=== PATIENT | female | born 1950 | race Hispanic/Latino ===

== ENCOUNTER → 2020-03-04 | Outpatient (CLI) | payer MEDICARE | END | disposition home or self-care (01) | LOC: RAH 14:09 | PROVIDERS: ATTEND Family Medicine | DX: Z12.31 Encounter for screening mammogram for malignant neoplasm of breast (principal) | CPT/HCPCS: 77067 ==

== ENCOUNTER → 2020-03-05 | Outpatient (CLI) | payer MEDICARE | END | disposition home or self-care (01) | LOC: OIH 09:10 | PROVIDERS: ATTEND Family Medicine | DX: M17.12 Unilateral primary osteoarthritis, left knee (principal) | CPT/HCPCS: 73562 ==

== ENCOUNTER 2021-03-04 06:27 | Day surgery (SDC) | payer MEDICARE ==
[2021-03-03 16:21] LABS: BASOPHILS % (AUTO) 0.4 % (0.0-5.0); EOSINOPHILS % (AUTO) 1.5 % (0.0-8.0); HEMATOCRIT 38.7 % (36-48); LYMPHOCYTES % (AUTO) 35.4 % (21.0-51.0); MEAN CORPUSCULAR HEMOGLOBIN 27.6 pg (27.0-33.0); MONOCYTES % (AUTO) 9.1 % (3.0-13.0); NEUTROPHILS % (AUTO) 53.1 % (40.0-77.0); PLATELET COUNT (AUTO) 224 K/uL (130-400); RED CELL DISTRIBUTION WIDTH 14.2 % (11.0-15.5)
[2021-03-03 16:34] LABS: CREATININE 0.9 mg/dL (0.5-1.5); POTASSIUM 4.3 mmol/L (3.5-5.1)
[2021-03-04] VITALS (17 sets, daily range): BP systolic 100–143; BP diastolic 46–72
[~2021-03-04] VITALS: Ht 160 cm; Wt 93.9 kg
[2021-03-04] MEDS ORDERED: AMLO-257 PO (08:37)
[2021-03-04] MEDS ORDERED: VITAD50000 PO (08:37)
[2021-03-04] MEDS ORDERED: METF-446 PO (08:37)
[2021-03-04] MEDS ORDERED: HYDR-4060 PO (08:37)
[2021-03-04] MEDS ORDERED: LISI40TA9 PO (08:37)
[2021-03-04] MEDS ORDERED: NACL 0.9% 1000ML 1,000 ML IV ONE (08:38)
[2021-03-04] MEDS ORDERED: CEFAZOLIN SODIUM 1 GM VIAL ONE (08:39)
[2021-03-04] MEDS ORDERED: ONDANSETRON 4MG INJ ONE (09:04)
[2021-03-04] MEDS ORDERED: LIDOCAINE PF 100MG/5ML (2%) SYRINGE 5ML ONE (09:04)
[2021-03-04] MEDS ORDERED: GLYCOPYRROLATE 1 MG/5 ML SYRINGE ONE (09:04)
[2021-03-04] MEDS ORDERED: DEXAMETHASONE SOD PHOSPHATE 10MG/ML 1ML VIAL ONE (09:04)
[2021-03-04] MEDS ORDERED: SUCCINYLCHOLINE CHLORIDE 20 MG/ML 10 ML VIAL ONE (09:04)
[2021-03-04] MEDS ORDERED: PROPOFOL 10 MG/ML 20ML VIAL IV ONE (09:04)
[2021-03-04] MEDS ORDERED: NEOSTIGMINE 5MG/5ML SYR IV ONE (09:05)
[2021-03-04] MEDS ORDERED: MIDAZOLAM HCL 1 MG/ML 2ML VIAL ONE (09:05)
[2021-03-04] MEDS ORDERED: ROCURONIUM 10MG/1ML SYR 10 MG/ML ML ONE (09:05)
[2021-03-04] MEDS ORDERED: FENTANYL CITRATE PF 50 MCG/1 ML 2ML VIAL ONE (09:05)
[2021-03-04] MEDS ORDERED: ROPIVACAINE 0.5% 5MG/ML 30ML IJ ONE ×2 (09:16→09:17)
[2021-03-04] MEDS ORDERED: EPHEDRINE SULFATE 50 MG/ML AMPULE ONE (10:42)
== END 2021-03-04 13:05 | disposition home or self-care (01) ==
LOC: DAH 06:27
PROVIDERS: ATTEND Orthopaedic Surgery
DX: M75.121 Complete rotator cuff tear or rupture of right shoulder, not specified as traumatic (principal); M75.41 Impingement syndrome of right shoulder; I10 Essential (primary) hypertension; E11.9 Type 2 diabetes mellitus without complications; Z79.84 Long term (current) use of oral hypoglycemic drugs; Z79.899 Other long term (current) drug therapy; Z20.822 Contact with and (suspected) exposure to COVID-19
CPT/HCPCS: 29826; 29827; 36415; 64415; 76942; 80048; 82948 ×2; 85025; 87635; A4215; A4221; A4222; A4223; A4452; A4565; A4649 ×4; A4930; A6260; C1713; C9803; J0330; J0690; J1100; J2001; J2250; J2405; J2704; J2710; J2795 ×2; J3010; J3490 ×2; J7030

== ENCOUNTER → 2022-10-08 | Outpatient (CLI) | payer MEDICARE ==
[~2022-10-08] MED LIST: AMLO-257 PO; HYDR-4060 PO; LISI40TA9 PO; METF-446 PO; VITAD50000 PO
== END | disposition home or self-care (01) ==
LOC: SHCH 14:44
PROVIDERS: ATTEND Internal Medicine Cardiovascular Disease
DX: I10 Essential (primary) hypertension (principal); E11.9 Type 2 diabetes mellitus without complications; R06.09 Other forms of dyspnea; R07.9 Chest pain, unspecified; E78.5 Hyperlipidemia, unspecified
CPT/HCPCS: 93306